=== PATIENT | female | born 1945 | race Caucasian/White ===

== ENCOUNTER → 2021-08-10 | Day surgery (SDC) | payer OTHER ==
[2021-08-09 09:36] LABS: BASOPHILS # (AUTO) 0.1 (0.0-0.1); BASOPHILS % 0.7 % (0.0-1.0); EOSINOPHILS # (AUTO) 0.2 (0.0-0.4); EOSINOPHILS % 2.4 % (0.0-6.0); HEMOGLOBIN 12.8 g/dL (12.0-16.0); LYMPHOCYTES # (AUTO) 2.5 (1.0-3.2); LYMPHOCYTES % 33.4 % (18.0-39.1); MEAN CORPUSCULAR HGB CONC 32.8 g/dL (31-35); MEAN CORPUSCULAR VOLUME 91.3 fL (81-99); MONOCYTES # (AUTO) 0.5 (0.2-0.8); MONOCYTES % 6.7 % (4.4-11.3); NEUTROPHILS # (AUTO) 4.2 (2.1-6.9); NEUTROPHILS % 56.7 % (38.7-80.0); PLATELET COUNT 228 x10e3/uL (140-360); RED BLOOD COUNT 4.27 x10e6/uL (3.6-5.1); RED CELL DISTRIBUTION WIDTH 13.3 % (11.7-14.4)
[~2021-08-10] MED LIST: ALENDRONATE SOD70 MG PO; ALLEGRA ALLERGY60 MG PO; ATENOLOL50 MG PO; BIOTIN1000 MCG PO; CALCET TABLET1 EACH PO; FENOPROFEN CAL600 MG PO; FIBER PO; GLUCOSAMIN-CHO1 EACH PO; LIDOCAINE HCL 2% LOCAL INJ 5 ML SDV VIAL INJ ONE; MAGNESIUM PO; MULTI-VITAMIN1 EACH PO; POLYETHYLENE GL17 GM PO; PROPOFOL IV EMULSION 10 MG/ML 20 ML VIAL ONE; SUPER B MAXI C0.4 MG PO; VITAMIN C1000 MG PO; VITAMIN D350 MCG PO; ZEGERID OTC 201 EACH PO; ZINC PO
[2021-08-10 11:20] VITALS: BP 134/77
== END | disposition home or self-care (01) ==
LOC: OR 07:23
PROVIDERS: ATTEND Internal Medicine Gastroenterology
DX: Z12.11 Encounter for screening for malignant neoplasm of colon (principal); K31.7 Polyp of stomach and duodenum; K29.70 Gastritis, unspecified, without bleeding; K44.9 Diaphragmatic hernia without obstruction or gangrene; K59.00 Constipation, unspecified; K21.9 Gastro-esophageal reflux disease without esophagitis; K64.8 Other hemorrhoids; I10 Essential (primary) hypertension; J30.2 Other seasonal allergic rhinitis; I49.9 Cardiac arrhythmia, unspecified; M19.90 Unspecified osteoarthritis, unspecified site; Z88.2 Allergy status to sulfonamides; Z01.810 Encounter for preprocedural cardiovascular examination; Z01.812 Encounter for preprocedural laboratory examination; Z20.822 Contact with and (suspected) exposure to COVID-19; Z79.899 Other long term (current) drug therapy; Z80.0 Family history of malignant neoplasm of digestive organs
CPT/HCPCS: 36415; 43239; 45378; 85025; 93005; J2001; J2704; U0002